=== PATIENT | male | born 1960 | race Caucasian/White ===

== ENCOUNTER 2019-12-10 15:02 | Emergency (ER) | payer OTHER, MEDICARE, MEDICAID ==
[~2019-12-10] VITALS: Ht 180.3 cm; Wt 54.0 kg
[~2019-12-10 15:02] MED LIST: FAMO-128 PO; MORP30CA16 PO; NORCO10T PO; ONDA4TAB6 PO; PANT-47 PO; ZOF4T PO
[2019-12-10] MEDS ORDERED: morphine 4 MG/ML inj SYRINge IM ONE (15:50)
[2019-12-10] MEDS ORDERED: ondansetron/PF 4mg/2ml inj IV ONE (15:50)
[2019-12-10 16:17] LABS: BASOPHILS # (AUTO) 0.1 X10'3 (0-0.2); BASOPHILS % (AUTO) 0.9 % (0-1); EOSINOPHILS % (AUTO) 0 % (0-6); HEMATOCRIT 43.4 % (42.0-52.0); HEMOGLOBIN 14.7 g/dl (14.0-17.9); LYMPHOCYTES # (AUTO) 2.1 X10'3 (1.1-4.8); LYMPHOCYTES % (AUTO) 22.2 % (21-51); MEAN CORPUSCULAR HEMOGLOBIN 30.7 PG (27.0-31.0); MEAN CORPUSCULAR HGB CONC 33.9 g/dL (33.0-36.5); MEAN CORPUSCULAR VOLUME 90.6 FL (78-98); MEAN PLATELET VOLUME 7.7 FL (7.4-10.4); MONOCYTES # (AUTO) 0.8 X10'3 (0-0.9); NEUTROPHILS # (AUTO) 6.5 X10'3 (1.8-7.7); NEUTROPHILS % (AUTO) 68.9 % (42-75); PLATELET COUNT 261 X10'3 (140-440); RED BLOOD COUNT 4.79 X10'6 (4.70-6.10); RED CELL DISTRIBUTION WIDTH 14.4 % (11.5-14.5); WHITE BLOOD COUNT 9.4 X10'3 (4.5-11.0)
[2019-12-10 16:31] LABS: ALANINE AMINOTRANSFERASE 14 U/L (12-78); ALBUMIN 4.2 G/DL (3.4-5.0); ALBUMIN/GLOBULIN RATIO 1.2 (1.1-1.5); ALKALINE PHOSPHATASE 62 IU/L (46-116); ANION GAP 10 (8-16); ASPARTATE AMINO TRANSFERASE 16 U/L (10-37); BILIRUBIN,TOTAL 0.6 MG/DL (0.1-1.0); BLOOD UREA NITROGEN 15 MG/DL (7-18); BUN/CREATININE RATIO 9.8 (5.4-32.0); CALCIUM 10.9 MG/DL (8.5-10.1); CHLORIDE 99 MMOL/L (99-107); CREATININE 1.53 MG/DL (0.60-1.10); GLUCOSE 124 MG/DL (70-104); LIPASE 52 U/L (73-393); SODIUM 143 MMOL/L (135-145); TOTAL CARBON DIOXIDE 34.1 MMOL/L (24-32); TOTAL PROTEIN 7.6 G/DL (6.4-8.2); eGFR 47 ML/MIN
[2019-12-10 16:39] LABS: POTASSIUM 2.7 MMOL/L (3.5-5.1)
[2019-12-10] MEDS ORDERED: potassium Cl 20 mEq SR tablet PO ONE (16:50)
[2019-12-10 17:57] VITALS: BP 124/70
== END 2019-12-10 17:59 | disposition home or self-care (01) ==
LOC: ER 15:03
DX: G89.29 Other chronic pain (principal); M54.5 Low back pain; R10.84 Generalized abdominal pain; R11.10 Vomiting, unspecified; K21.9 Gastro-esophageal reflux disease without esophagitis; F12.90 Cannabis use, unspecified, uncomplicated; Z86.69 Personal history of other diseases of the nervous system and sense organs; Z98.890 Other specified postprocedural states; Z79.899 Other long term (current) drug therapy
CPT/HCPCS: 36415; 80053; 83690; 85025; 96372; 96374; 99284; J2270; J2405

== ENCOUNTER 2020-06-11 14:39 | Emergency (ER) | payer OTHER, MEDICARE, MEDICAID ==
[~2020-06-11] VITALS: Ht 180.3 cm; Wt 53.0 kg
[2020-06-11] MEDS ORDERED: morphine 4 MG/ML inj SYRINge IV ONE (15:20)
[2020-06-11] MEDS ORDERED: pantoprazole 40 MG vial IV ONE (15:20)
[2020-06-11] MEDS ORDERED: ondansetron/PF 4mg/2ml inj IV ONE (15:20)
[2020-06-11] MEDS ORDERED: normal saline 1000ML IV soln IVB ONE (15:20)
[2020-06-11 15:37] LABS: BASOPHILS # (AUTO) 0.1 X10'3 (0-0.2); BASOPHILS % (AUTO) 0.4 % (0-1); EOSINOPHILS % (AUTO) 0 % (0-6); HEMATOCRIT 45.7 % (42.0-52.0); HEMOGLOBIN 15.8 g/dl (14.0-17.9); LYMPHOCYTES % (AUTO) 12.3 % (21-51); MEAN CORPUSCULAR HEMOGLOBIN 32.1 PG (27.0-31.0); MEAN CORPUSCULAR HGB CONC 34.6 g/dL (33.0-36.5); MEAN CORPUSCULAR VOLUME 92.6 FL (78-98); MONOCYTES # (AUTO) 1.9 X10'3 (0-0.9); MONOCYTES % (AUTO) 12.1 % (2-12); NEUTROPHILS % (AUTO) 75.2 % (42-75); PLATELET COUNT 304 X10'3 (140-440); RED BLOOD COUNT 4.93 X10'6 (4.70-6.10); RED CELL DISTRIBUTION WIDTH 13.5 % (11.5-14.5); WHITE BLOOD COUNT 15.9 X10'3 (4.5-11.0)
[2020-06-11 15:38] LABS: CLARITY,URINE SLIGHTLY CLOUDY (Clear); COLOR,URINE YELLOW (Yellow); GLUCOSE, URINE NEGATIVE (Neg); KETONES,URINE NEGATIVE (Neg); LEUKOCYTE ESTERASE ,URINE NEGATIVE (Neg); NITRITES, URINE NEGATIVE (Neg); OCCULT BLOOD,URINE LARGE (Neg); PROTEIN,URINE 100 mg/dl (Neg); UROBILINOGEN,URINE 0.2 E.U/dL (0.2-1.0)
[2020-06-11 15:50] LABS: ALANINE AMINOTRANSFERASE 27 U/L (12-78); ALBUMIN/GLOBULIN RATIO 1.1 (1.1-1.5); ALKALINE PHOSPHATASE 67 IU/L (46-116); BILIRUBIN,TOTAL 0.8 MG/DL (0.1-1.0); BLOOD UREA NITROGEN 51 MG/DL (7-18); BUN/CREATININE RATIO 8.4 (5.4-32.0); CALCIUM 10.5 MG/DL (8.5-10.1); CHLORIDE 82 MMOL/L (99-107); GLUCOSE 108 MG/DL (70-104); LIPASE 66 U/L (73-393); SODIUM 131 MMOL/L (135-145); TOTAL PROTEIN 7.8 G/DL (6.4-8.2); eGFR 10 ML/MIN
[2020-06-11 15:51] LABS: ANION GAP 4 (8-16); ASPARTATE AMINO TRANSFERASE 49 U/L (10-37); POTASSIUM 3.5 MMOL/L (3.5-5.1)
[2020-06-11 15:53] LABS: TOTAL CARBON DIOXIDE 45.2 MMOL/L (24-32)
[2020-06-11 15:58] LABS: UA COLLECTION TYPE CLN CATCH MIDSTREAM
[2020-06-11 16:03] LABS: MUCUS STRANDS MODERATE /LPF (Neg)
[2020-06-11 16:05] LABS: SQUAMOUS EPITHELIAL CELL,UR FEW /LPF (FEW)
[2020-06-11 16:09] LABS: RENAL CELLS, URINE FEW /HPF; WBC,URINE 0-4 /HPF (0-4)
[2020-06-11 16:10] LABS: BACTERIA,URINE FEW /HPF (Neg)
[2020-06-11 16:13] LABS: STARCH,URINE MODERATE /HPF (NEGATIVE)
--- NOTE | 2020-06-11 18:07 | NUR ---
Pt c/o abdominal/back pain, MD notified, orders for additional dose of Morphine received.
[2020-06-11 18:20] LABS: ALBUMIN 3.5 G/DL (3.4-5.0); ANION GAP 7 (8-16); BLOOD UREA NITROGEN 48 MG/DL (7-18); BUN/CREATININE RATIO 9.4 (5.4-32.0); CALCIUM 9.8 MG/DL (8.5-10.1); CHLORIDE 86 MMOL/L (99-107); CREATININE 5.08 MG/DL (0.60-1.10); GLUCOSE 117 MG/DL (70-104); SODIUM 132 MMOL/L (135-145); TOTAL CARBON DIOXIDE 39.5 MMOL/L (24-32); eGFR 12 ML/MIN
--- NOTE | 2020-06-11 18:20 | NUR ---
pt to ct
[2020-06-11 18:26] LABS: POTASSIUM 2.7 MMOL/L (3.5-5.1)
--- NOTE | 2020-06-11 18:32 | NUR ---
pt back from ct
--- NOTE | 2020-06-11 18:44 | NUR ---
educated patient on why we are repeating the potassium redraw . pt verbalized understanding and is now allowing the lab to redraw.
--- NOTE | 2020-06-11 19:15 | NUR ---
pt states that his ride from [facility] will be leaving in 15 min and that this recorder has 3-5 min to get his discharge papper work ready bc he is leaving . notified charge nurse and dr iverson of patients demands. educated pt that his potassium levels are low and that he needs potassium and it could affect his health if he does not receive potassium . pt states he would like to take po potassium and have a redraw in am . pt states he wants to am a bc he has been here long enough
[2020-06-11] MEDS ORDERED: potassium Cl 20 mEq SR tablet PO ONE (19:25)
--- NOTE | 2020-06-11 19:27 | NUR ---
dr iverson to the bedside to educate patient that he needs to have further treatment and evaluation . pt still refusing to stay . iv discontinued . paper work being prepaired for [facility] at this time
[2020-06-11 19:37] VITALS: BP 108/77
== END 2020-06-11 19:41 | disposition left against medical advice (07) ==
LOC: ER 14:39
DX: R11.10 Vomiting, unspecified (principal); R10.13 Epigastric pain; N19 Unspecified kidney failure; E87.6 Hypokalemia; K21.9 Gastro-esophageal reflux disease without esophagitis; G89.29 Other chronic pain; I25.10 Atherosclerotic heart disease of native coronary artery without angina pectoris; F12.90 Cannabis use, unspecified, uncomplicated; F17.200 Nicotine dependence, unspecified, uncomplicated; Z79.899 Other long term (current) drug therapy; Z98.890 Other specified postprocedural states; Z95.1 Presence of aortocoronary bypass graft; Z86.69 Personal history of other diseases of the nervous system and sense organs
CPT/HCPCS: 36415; 74176; 80048; 80053; 81001; 83690; 84132; 85025; 93005; 96361; 96374; 96375; 99285; C9113; J2270; J7030

== ENCOUNTER 2020-09-30 13:02 | Emergency (ER) | payer OTHER, MEDICARE, MEDICAID ==
[~2020-09-30] VITALS: Ht 182.9 cm; Wt 56.8 kg
[~2020-09-30 13:02] MED LIST changes: -FAMO-128 PO; +MORP15TA PO; -MORP30CA16 PO; -ONDA4TAB6 PO; -PANT-47 PO
[2020-09-30 13:52] LABS: BASOPHILS # (AUTO) 0.1 X10'3 (0-0.2); BASOPHILS % (AUTO) 0.6 % (0-1); EOSINOPHILS % (AUTO) 0.1 % (0-6); HEMATOCRIT 51.5 % (42.0-52.0); HEMOGLOBIN 17.4 g/dl (14.0-17.9); LYMPHOCYTES # (AUTO) 1.8 X10'3 (1.1-4.8); LYMPHOCYTES % (AUTO) 8.7 % (21-51); MEAN CORPUSCULAR HEMOGLOBIN 31.6 PG (27.0-31.0); MEAN CORPUSCULAR HGB CONC 33.8 g/dL (33.0-36.5); MEAN CORPUSCULAR VOLUME 93.6 FL (78-98); MEAN PLATELET VOLUME 7.9 FL (7.4-10.4); MONOCYTES # (AUTO) 2.4 X10'3 (0-0.9); MONOCYTES % (AUTO) 11.7 % (2-12); NEUTROPHILS # (AUTO) 16.3 X10'3 (1.8-7.7); NEUTROPHILS % (AUTO) 78.9 % (42-75); PLATELET COUNT 379 X10'3 (140-440); RED CELL DISTRIBUTION WIDTH 14.5 % (11.5-14.5); WHITE BLOOD COUNT 20.7 X10'3 (4.5-11.0)
[2020-09-30] MEDS ORDERED: ondansetron/PF 4mg/2ml inj IV ONE ×3 (14:00→18:15)
[2020-09-30 14:09] LABS: ALANINE AMINOTRANSFERASE 25 U/L (12-78); ALBUMIN 4.8 G/DL (3.4-5.0); ALKALINE PHOSPHATASE 74 IU/L (46-116); ANION GAP 18 (8-16); ASPARTATE AMINO TRANSFERASE 26 U/L (10-37); BILIRUBIN,TOTAL 0.7 MG/DL (0.1-1.0); BLOOD UREA NITROGEN 51 MG/DL (7-18); BUN/CREATININE RATIO 9.3 (5.4-32.0); CHLORIDE 86 MMOL/L (99-107); CREATININE 5.51 MG/DL (0.60-1.10); GLUCOSE 129 MG/DL (70-104); LIPASE 159 U/L (73-393); POTASSIUM 3.4 MMOL/L (3.5-5.1); SODIUM 139 MMOL/L (135-145); TOTAL CARBON DIOXIDE 35.1 MMOL/L (24-32); TOTAL PROTEIN 9.5 G/DL (6.4-8.2); eGFR 11 ML/MIN
--- NOTE | 2020-09-30 14:10 | NUR ---
George Goodrich at bedside.
[2020-09-30 14:12] LABS: CALCIUM 12.7 MG/DL (8.5-10.1)
[2020-09-30] MEDS ORDERED: normal saline 1000ML IV soln IVB ONE ×2 (14:15→14:55)
[2020-09-30] MEDS ORDERED: morphine 4 MG/ML inj SYRINge IV ONE ×2 (14:15→17:00)
[2020-09-30 14:22] LABS: PLATELET ESTIMATE NORMAL; TOTAL CELLS COUNTED 100
[2020-09-30 14:31] LABS: TROPONIN I 0.07 NG/ML (0.0-0.05)
--- NOTE | 2020-09-30 15:11 | NUR ---
Pt going to CT with tech via [employer].
[2020-09-30] MEDS ORDERED: metoclopramide 5 mg/ml inj IV ONE (15:35)
[2020-09-30 16:35] LABS: ABG BASE EXCESS 7.9 mmol/L (-2.0-2.0); ABG HCO3 31.8 mmol/L (22.0-26.0); ABG OXYGEN SATURATION 95.4 % (94-97); ABG PCO2 (T) 41.2 mmHg (35.0-48.0); ABG PO2 (T) 79.9 mmHg (75.0-100.0); ALLEN'S TEST POSITIVE; FCOHb 1.4 % (0.0-3.9); FMetHb 0.3 % (0.0-1.5); FO2Hb 93.8 % (94-97); TOTAL HEMOGLOBIN 16.3 G/dl (14.0-18.0)
[2020-09-30] MEDS ORDERED: normal saline 1000ml 1,000 ML IVB ONE (17:00)
[2020-09-30] MEDS ORDERED: ondansetron/PF 4mg/2ml inj IM ONE (17:00)
[2020-09-30 17:28] LABS: BASOPHILS # (AUTO) 0.1 X10'3 (0-0.2); BASOPHILS % (AUTO) 0.8 % (0-1); EOSINOPHILS % (AUTO) 0.1 % (0-6); HEMATOCRIT 48.8 % (42.0-52.0); HEMOGLOBIN 16.3 g/dl (14.0-17.9); LYMPHOCYTES # (AUTO) 1.9 X10'3 (1.1-4.8); LYMPHOCYTES % (AUTO) 10.1 % (21-51); MEAN CORPUSCULAR HEMOGLOBIN 31.3 PG (27.0-31.0); MEAN CORPUSCULAR HGB CONC 33.5 g/dL (33.0-36.5); MEAN CORPUSCULAR VOLUME 93.3 FL (78-98); MEAN PLATELET VOLUME 7.9 FL (7.4-10.4); MONOCYTES # (AUTO) 1.5 X10'3 (0-0.9); MONOCYTES % (AUTO) 8.1 % (2-12); NEUTROPHILS % (AUTO) 80.9 % (42-75); PLATELET COUNT 321 X10'3 (140-440); RED BLOOD COUNT 5.22 X10'6 (4.70-6.10); RED CELL DISTRIBUTION WIDTH 14.7 % (11.5-14.5); WHITE BLOOD COUNT 18.5 X10'3 (4.5-11.0)
[2020-09-30 17:33] VITALS: BP 116/87
[2020-09-30] MEDS ORDERED: ONDA4TAB6 PO (18:03)
== END 2020-09-30 19:00 | disposition home or self-care (01) ==
LOC: ER 13:03
DX: G89.29 Other chronic pain (principal); Z98.890 Other specified postprocedural states; E86.0 Dehydration; R10.9 Unspecified abdominal pain; N17.9 Acute kidney failure, unspecified; G43.909 Migraine, unspecified, not intractable, without status migrainosus; K21.9 Gastro-esophageal reflux disease without esophagitis; F12.90 Cannabis use, unspecified, uncomplicated; Z79.899 Other long term (current) drug therapy
CPT/HCPCS: 36415; 36600; 71045; 74176; 80053; 82803; 83605; 83690; 84484; 85007; 85018; 85025; 87040; 93005; 96361; 96374; 96375; 96376; 99285; J2270; J2405; J2765; J7030

== ENCOUNTER 2020-10-20 18:06 | Emergency (ER) | payer OTHER, MEDICARE, MEDICAID ==
[~2020-10-20] VITALS: Ht 182.9 cm; Wt 57.7 kg
[~2020-10-20 18:06] MED LIST changes: +ONDA4TAB6 PO
[2020-10-20] MEDS ORDERED: morphine 4 MG/ML inj SYRINge IV ONE (18:40)
[2020-10-20] MEDS ORDERED: proCHLORperazine 10 MG/2 ml inj IV ONE ×2 (18:40→20:00)
[2020-10-20] MEDS ORDERED: normal saline 1000ml 1,000 ML IV ONE (18:40)
[2020-10-20 19:30] LABS: BASOPHILS # (AUTO) 0.1 X10'3 (0-0.2); BASOPHILS % (AUTO) 0.5 % (0-1); EOSINOPHILS % (AUTO) 0 % (0-6); HEMATOCRIT 42.3 % (42.0-52.0); HEMOGLOBIN 14.2 g/dl (14.0-17.9); LYMPHOCYTES # (AUTO) 1.2 X10'3 (1.1-4.8); LYMPHOCYTES % (AUTO) 12.8 % (21-51); MEAN CORPUSCULAR HEMOGLOBIN 31.5 PG (27.0-31.0); MEAN CORPUSCULAR HGB CONC 33.5 g/dL (33.0-36.5); MEAN CORPUSCULAR VOLUME 93.9 FL (78-98); MEAN PLATELET VOLUME 7.6 FL (7.4-10.4); MONOCYTES # (AUTO) 0.5 X10'3 (0-0.9); NEUTROPHILS # (AUTO) 7.7 X10'3 (1.8-7.7); NEUTROPHILS % (AUTO) 81.7 % (42-75); PLATELET COUNT 285 X10'3 (140-440); RED BLOOD COUNT 4.51 X10'6 (4.70-6.10); RED CELL DISTRIBUTION WIDTH 14.3 % (11.5-14.5); WHITE BLOOD COUNT 9.4 X10'3 (4.5-11.0)
--- NOTE | 2020-10-20 19:30 | NUR ---
PT TO CT VIA [facility]
[2020-10-20 19:47] LABS: ALANINE AMINOTRANSFERASE 22 U/L (12-78); ALBUMIN 3.9 G/DL (3.4-5.0); ALBUMIN/GLOBULIN RATIO 1.2 (1.1-1.5); ALKALINE PHOSPHATASE 52 IU/L (46-116); ANION GAP 12 (8-16); ASPARTATE AMINO TRANSFERASE 12 U/L (10-37); BILIRUBIN,TOTAL 0.6 MG/DL (0.1-1.0); BLOOD UREA NITROGEN 27 MG/DL (7-18); BUN/CREATININE RATIO 13.4 (5.4-32.0); CALCIUM 10.9 MG/DL (8.5-10.1); CHLORIDE 103 MMOL/L (99-107); CREATININE 2.02 MG/DL (0.60-1.10); GLUCOSE 125 MG/DL (70-104); POTASSIUM 3.2 MMOL/L (3.5-5.1); SODIUM 142 MMOL/L (135-145); TOTAL CARBON DIOXIDE 27.5 MMOL/L (24-32); TOTAL PROTEIN 7.1 G/DL (6.4-8.2); eGFR 34 ML/MIN
[2020-10-20 19:49] LABS: PARTIAL THROMBOPLASTIN TIME 28 SECONDS (22-32)
[2020-10-20 19:55] LABS: LIPASE 169 U/L (73-393)
--- NOTE | 2020-10-20 19:56 | NUR ---
PT BACK FROM CT
[2020-10-20] MEDS ORDERED: haloperidol lactate 5mg/ml inj IM ONE (20:00)
[2020-10-20] MEDS ORDERED: diphenhydrAMINE 50 mg/ml inj IV ONE (20:00)
[2020-10-20 20:51] VITALS: BP 102/64
--- NOTE | 2020-10-20 20:51 | NUR ---
PT RESTING LAYIING SUPINE, NO DISTRESS NOTED AT THIS TIME.
[2020-10-20] MEDS ORDERED: POTASSIUM BICARB 20meq eff tab 20 MEQ TABLET.EFF PO ONE (21:40)
[2020-10-20] MEDS ORDERED: ONDA4TAB12 PO (21:41)
--- NOTE | 2020-10-20 21:43 | NUR ---
PATIENT ASKED TO HAVE HIS IV REMOVED BECAUSE HE WANTS TO LEAVE. PATIENT NOT IN ROOM TO GIVE PO POTASSIUM.
== END 2020-10-20 21:47 | disposition home or self-care (01) ==
LOC: ER 18:07
DX: G89.29 Other chronic pain (principal); M54.5 Low back pain; R11.2 Nausea with vomiting, unspecified; R10.13 Epigastric pain; N18.9 Chronic kidney disease, unspecified; F12.90 Cannabis use, unspecified, uncomplicated; Z86.69 Personal history of other diseases of the nervous system and sense organs; Z98.890 Other specified postprocedural states; Z79.899 Other long term (current) drug therapy
CPT/HCPCS: 36415; 71045; 74176; 80053; 83690; 83880; 84484; 85025; 85610; 85730; 93005; 96372; 96374; 96375; 99285; J0780; J1200; J1630; J2270; J7030